=== PATIENT | male | born 1935 | race Caucasian/White ===

== ENCOUNTER 2016-12-04 10:36 | Emergency (ER) | payer MEDICARE, OTHER ==
[2017-02-28] MEDS ORDERED: METOPROLOL SUCC25 MG PO (07:47)
[2017-02-28] MEDS ORDERED: FISH OIL 1,0001 EACH PO (07:48)
[2017-02-28] MEDS ORDERED: NEXIUM20 MG PO (07:48)
[2017-02-28] MEDS ORDERED: XARELTO15 MG PO (07:48)
[2017-02-28] MEDS ORDERED: LANTUS100 UNIT/1 SQ (07:49)
[2017-02-28] MEDS ORDERED: MAGNESIUM400 MG PO (07:49)
[2017-02-28] MEDS ORDERED: INCRUSE ELLI62.5 MCG INH (07:51)
[2017-02-28] MEDS ORDERED: HUMALOG100 UNIT/1 SQ (07:51)
[2017-03-23] MEDS ORDERED: PROCTOCREAM-HC30 G1 EXT (10:00)
[2017-03-23] MEDS ORDERED: ROBAXIN500 MG PO (10:01)
[2017-03-23] MEDS ORDERED: TRIAMCINOLONE A15 GM TP (10:03)
== END 2016-12-04 11:40 | disposition home or self-care (01) ==
LOC: ER1 10:36
DX: M54.5 Low back pain (principal); I10 Essential (primary) hypertension; E11.9 Type 2 diabetes mellitus without complications; Z88.8 Allergy status to other drugs, medicaments and biological substances
CPT/HCPCS: 96372; 99283; J1100

== ENCOUNTER 2017-01-20 10:16 | Emergency (ER) | payer MEDICARE, OTHER ==
[2017-01-20 10:59] LABS: RED BLOOD COUNT 5.47 M/UL (4.20-5.50); WHITE BLOOD COUNT 9.6 K/UL (4.5-11.0)
[2017-02-28] MEDS ORDERED: METOPROLOL SUCC25 MG PO (07:47)
[2017-02-28] MEDS ORDERED: FISH OIL 1,0001 EACH PO (07:48)
[2017-02-28] MEDS ORDERED: XARELTO15 MG PO (07:48)
[2017-02-28] MEDS ORDERED: NEXIUM20 MG PO (07:48)
[2017-02-28] MEDS ORDERED: MAGNESIUM400 MG PO (07:49)
[2017-02-28] MEDS ORDERED: LANTUS100 UNIT/1 SQ (07:49)
[2017-02-28] MEDS ORDERED: INCRUSE ELLI62.5 MCG INH (07:51)
[2017-02-28] MEDS ORDERED: HUMALOG100 UNIT/1 SQ (07:51)
[2017-03-23] MEDS ORDERED: PROCTOCREAM-HC30 G1 EXT (10:00)
[2017-03-23] MEDS ORDERED: ROBAXIN500 MG PO (10:01)
[2017-03-23] MEDS ORDERED: TRIAMCINOLONE A15 GM TP (10:03)
== END 2017-01-20 15:30 | disposition home or self-care (01) ==
LOC: ER1 10:16
PROVIDERS: Preventive Medicine Occupational Medicine
DX: J44.1 Chronic obstructive pulmonary disease with (acute) exacerbation (principal); I12.9 Hypertensive chronic kidney disease with stage 1 through stage 4 chronic kidney disease, or unspecified chronic kidney disease; N18.9 Chronic kidney disease, unspecified; R91.8 Other nonspecific abnormal finding of lung field; I48.91 Unspecified atrial fibrillation; Z88.8 Allergy status to other drugs, medicaments and biological substances; Z79.4 Long term (current) use of insulin; Z79.01 Long term (current) use of anticoagulants; Z79.899 Other long term (current) drug therapy
CPT/HCPCS: 36415; 71020; 80053; 82550; 82553; 83874; 83880; 84484; 85025; 87040; 93005; 96374; 99285; J2930

== ENCOUNTER → 2017-02-23 | Outpatient (CLI) | payer MEDICARE, OTHER ==
[~2017-02-23] MED LIST: FISH OIL 1,0001 EACH PO; HUMALOG100 UNIT/1 SQ; INCRUSE ELLI62.5 MCG INH; LANTUS100 UNIT/1 SQ; MAGNESIUM400 MG PO; METOPROLOL SUCC25 MG PO; NEXIUM20 MG PO; PROCTOCREAM-HC30 G1 EXT; ROBAXIN500 MG PO; TRIAMCINOLONE A15 GM TP; XARELTO15 MG PO
== END ==
LOC: HEART 5 08:13
DX: I20.9 Angina pectoris, unspecified (principal); I27.2 Other secondary pulmonary hypertension; R06.02 Shortness of breath
CPT/HCPCS: 93306

== ENCOUNTER → 2017-02-26 | Outpatient (CLI) | payer MEDICARE, OTHER ==
[2017-02-26 10:10] LABS: HEMOGLOBIN 12.8 gm/dl (14.0-17.5); RED BLOOD COUNT 5.22 M/UL (4.20-5.50); WHITE BLOOD COUNT 8.8 K/UL (4.5-11.0)
== END ==
LOC: LAB 09:07
PROVIDERS: Internal Medicine Cardiovascular Disease
DX: I48.91 Unspecified atrial fibrillation (principal); R06.02 Shortness of breath; I27.2 Other secondary pulmonary hypertension; I10 Essential (primary) hypertension; I20.9 Angina pectoris, unspecified
CPT/HCPCS: 36415; 80048; 85025

== ENCOUNTER → 2017-02-28 | Outpatient (CLI) | payer MEDICARE, OTHER ==
[~2017-02-28] VITALS: Ht 182.9 cm; Wt 88.5 kg
== END ==
LOC: CATH 06:36
DX: I25.110 Atherosclerotic heart disease of native coronary artery with unstable angina pectoris (principal); I51.7 Cardiomegaly; I27.2 Other secondary pulmonary hypertension; I34.0 Nonrheumatic mitral (valve) insufficiency; I48.1 Persistent atrial fibrillation; I48.0 Paroxysmal atrial fibrillation; I12.9 Hypertensive chronic kidney disease with stage 1 through stage 4 chronic kidney disease, or unspecified chronic kidney disease; E11.22 Type 2 diabetes mellitus with diabetic chronic kidney disease; N18.3 Chronic kidney disease, stage 3 (moderate); I48.92 Unspecified atrial flutter; R09.89 Other specified symptoms and signs involving the circulatory and respiratory systems; J44.9 Chronic obstructive pulmonary disease, unspecified; E78.5 Hyperlipidemia, unspecified; E87.5 Hyperkalemia; Z85.51 Personal history of malignant neoplasm of bladder; Z98.890 Other specified postprocedural states; Z87.891 Personal history of nicotine dependence; Z88.1 Allergy status to other antibiotic agents; Z88.8 Allergy status to other drugs, medicaments and biological substances; Z79.4 Long term (current) use of insulin; Z79.899 Other long term (current) drug therapy
CPT/HCPCS: 71010; 82962; 85347; 92978; C1751; C1753; C1769; C1887; C1894; J0153; J0360; J1644; J2250; J3010; J7030; Q0163; Q9965